=== PATIENT | male | born 1985 | race Caucasian/White ===

== ENCOUNTER 2021-05-12 07:46 | Day surgery (SDC) | payer BC ==
[2021-05-12] MEDS ORDERED: Sodium Bicarbonate 2.5 MEQ/5 ML VIAL ONE (08:13)
[2021-05-12] MEDS ORDERED: Lidocaine 1% PF 5 ML VIAL ONE (08:13)
[2021-05-12 08:51] VITALS: BP 159/90; TEMP 98.5
== END 2021-05-12 11:15 | disposition home or self-care (01) ==
LOC: CSHRAD 07:46
PROVIDERS: ATTEND Neurological Surgery
DX: M51.36 Other intervertebral disc degeneration, lumbar region (principal); M54.16 Radiculopathy, lumbar region; M48.061 Spinal stenosis, lumbar region without neurogenic claudication
CPT/HCPCS: 62304; 72132; 77002